=== PATIENT | male | born 1955 | race Caucasian/White ===

== ENCOUNTER 2018-07-11 01:59 | Outpatient (CLI) | payer MEDICARE, SELFPAY ==
[2018-07-11 11:25] LABS: Cholesterol 250 mg/dL (50-200); HDL Cholesterol 37 mg/dL (40-60); LDL CHOLESTEROL 120 mg/dL (<100); Triglyceride 387 mg/dL (30-150)
== END 2018-07-11 02:19 ==
PROVIDERS: PCP Emergency Medicine; Visit Provider Emergency Medicine
DX: E78.5 Hyperlipidemia, unspecified (principal)
CPT/HCPCS: 80061; 83721

== ENCOUNTER 2018-10-09 11:24 | Outpatient (CLI) | payer MEDICARE, SELFPAY ==
[2018-10-10 09:43] LABS: PSA, Screening 1.4 ng/ml (0-4.5)
== END 2018-10-09 11:44 ==
PROVIDERS: PCP Emergency Medicine; Visit Provider Emergency Medicine
DX: F41.9 Anxiety disorder, unspecified (principal); Z12.5 Encounter for screening for malignant neoplasm of prostate
CPT/HCPCS: 36415; 84153

== ENCOUNTER → 2018-12-24 10:42 | Outpatient (BNVA) | payer MEDICARE, SELFPAY | PROVIDERS: PCP Emergency Medicine; Referring Provider Emergency Medicine; Visit Provider Physical Therapy Assistant | DX: Z12.11 Encounter for screening for malignant neoplasm of colon (principal) ==

== ENCOUNTER 2019-01-01 09:47 | Day surgery (SDC) | payer MEDICARE, SELFPAY ==
--- NOTE | 2019-01-01 06:55 | COLE_ITS ---
Date of service: 01/01/19 Time of Service: 12:11 Colonoscopy Report Date of procedure: 01/01/19 Pre-op diagnosis general: Colon Cancer Screening Post-op diagnosis procedure note: other (Diverticulosis and colorectal polyps) Procedure: Colonoscopy with polypectomy by forceps Surgeon: Katie Villeda Anesthesia proc note operative: other (General/ ASA2 /Adriel Stewart, QUARTER BACKER) Estimated blood loss (mL): 5 Pathology: other (Ascending polyp x3, Descending polyp x2) Complications: None Disposition: same day Indications: Mr. Horvath is a pleasant 63 year old male seen in the office for a screening colonoscopy. His last Colonoscopy was in 2007 and was normal. Risks, benefits and complications have been reviewed. Complications include but are not limited to bleeding, pain, perforation, missed small lesion/polyp, sore throat, aspiration and adverse reaction to the medications. Questions were entertained and answered to their satisfaction and they wished to proceed. No guarantees were given or implied. Prep: Miralax/Dulcolax Procedure Start Time: 12:11 Procedure End Time: 12:46 Retraction Time: 25 minutes Findings: 3 sessile polyps in the ascending colon and 2 in the descending Diverticulosis Procedure Description: After informed consent was obtained the patient was taken to the procedure room and placed in a left decubitous position. Monitors were applied and a time out was done. The patients name, date of , procedure, allergies to medications and metal in their body was reviewed. The patient was then sedated. Once sedated and comfortable a rectal exam was done. External exam was normal. Internal exam revealed a normal sphincter tone and no palpable masses. The prostate smooth. The scope was then introduced and retro-flexed. No internal hemorrhoids were identified, no polyps or masses. The scope was then advanced to the cecum without difficulty. The TI and appendiceal orifice were identified. The prep was adequate. The scope was then slowly retracted over 25 minutes back into the rectum. Polyps were removed with cold forceps in the ascending colon x3 and the descending colon x2. The scope was removed and the patient was woken up and taken back to Same day surgery in stable condition. The patient tolerated the procedure well and there were no immediate complications. Follow up: The patient should follow up in 3-5 years unless they develop changes in bowel habits or other new gastrointestinal complaints.
--- NOTE | 2019-01-01 06:55 | W.PM.DSUDISC ---
Discharge Plan Disposition Patient Disposition: HOME Condition: Good Discharge Details Reason For Visit: Colon Cancer Screening Attending Provider: Katie Villeda Primary Care Provider: Laz Wahl Home Meds and New Rx's Prescriptions: Continued desonide [DesOwen] 0.05 % cream 1 applic TP BID PRN (Reason: rash) Qty: 30 RF: 1 ibuprofen [Advil] 200 MG tablet 2 tab PO daily prn PRNRF: 0 clonazepam 0.5 mg tablet 0.5 mg PO BID Qty: 90 RF: 0 esomeprazole magnesium 20 mg capsule,delayed release(DR/EC) 20 mg PO BID Qty: 90 RF: 3 Discontinued polyethylene glycol 3350 17 gram/dose powder 238 g PO ONCE Qty: 238 RF: 0 bisacodyl [Dulcolax (bisacodyl)] 5 mg tablet,delayed release (DR/EC) 5 mg PO ONCE Qty: 4 RF: 0 Discharge Instructions Instructions: Colonoscopy (DC), Colorectal Polyps (DC), Diverticulosis (DC) Additional Instructions: Findings: Mild Diverticulosis Multiple polyps Follow up: 3-5 years Please call if you develop: fevers >101.5 Nausea or Vomiting Abdominal pain that is not transient DAY SURGERY UNIT POST COLONOSCOPY INSTRUCTIONS 1. Because there will be medication in your system for the next 24 hours, you may feel a little sleepy. Your coordination will be affected. Therefore: a. Do not drive or operate dangerous equipment for 24 hours. b. Do not drink alcohol beverages for 24 hours (not even beer). c. Plan to go home and rest for the day. 2. Generally there are no restrictions on your activity after a day or so has gone by, but you may feel a bit fatigued for a few days. 3 After you arrive home you may have a light meal and return to a normal diet as you can tolerate it without feeling sick to your stomach. 4. After surgery, you may feel pain or discomfort. This should be only transient, but if it persists please contact your doctor. 5. If there are any questions regarding the findings of your procedure, please feel free to contact your doctor. 6. If you are unable to contact your doctor with a problem, contact the hospital at [phone]. 7. Continue all your regular medications unless directed otherwise. I understand the above instructions and have no questions. Signature of Patient or Responsible Adult Escort Date/Time Name of Responsible Adult Escort Signature of Nurse Date/Time Activity:: Activity as Tolerated Diet:: High Fiber Diet Discharge Orders Discharge Orders: Discharge Order (Routine); Ordered 01/01/19 Ordered By: Katie Villeda DS: Diagnosis Discharge Diagnosis (1) S/P colonoscopy: Status: Acute (2) Colorectal polyps: Status: Acute
[2019-01-01 11:01] VITALS: BP 131/89; PULSE 80; RESP 16; TEMP 36.6; O2SAT 97
[2019-01-01] MEDS: Lactated Ringers 1,000 ML 80 ML IV (11:22)
--- NOTE | 2019-01-01 12:15 | BOWEL_PTH ---
PATIENT: Wilmer Horvath JR LOC: [facility] U#:[id number] AGE/SX: 63/M ROOM: RE01/01/[address]: Katie Villeda MD : 1955 BED: DIS: 01/01/2019 SPEC #: [id number] RECD: 01/01/19 17:18 STATUS: COURT REQ #: [id number] ALLYSON: 01/01/19 12:[address]: Katie Villeda DEPT: Surgical Specimen RECD BY: Tamika Goldstein ENTERED: 01/01/19 17:20 SP TYPE: Bowel OTHR DR: Laz Wahl DO Tissues: 1 - BIOPSY BOWEL 2 - BIOPSY BOWEL Procedures: GROSS AND MICRO LEVEL 4 Comments: [id number]
[2019-01-01 13:18] VITALS: BP 132/75; PULSE 67; RESP 16; TEMP 36.7; O2SAT 97
== END 2019-01-01 13:50 | disposition home or self-care (01) ==
LOC: SUR 09:47
PROVIDERS: PCP Emergency Medicine; Visit Provider Surgery
PROC: 0DJD8ZZ Inspection of Lower Intestinal Tract, Via Natural or Artificial Opening Endoscopic (ICD-10-PCS; CPT 45378; principal; 2019-01-01 11:45)
DX: Z12.11 Encounter for screening for malignant neoplasm of colon (principal); D12.4 Benign neoplasm of descending colon; D12.2 Benign neoplasm of ascending colon; K57.30 Diverticulosis of large intestine without perforation or abscess without bleeding
CPT/HCPCS: 45380; 88305

== ENCOUNTER → 2020-04-09 10:27 | Outpatient (BNVA) | payer MEDICARE, SELFPAY | PROVIDERS: PCP Emergency Medicine; Referring Provider Emergency Medicine; Visit Provider Nurse Practitioner Gerontology | DX: N48.89 Other specified disorders of penis (principal) | CPT/HCPCS: 99204; 99215 ==

== ENCOUNTER 2021-01-27 20:01 | Emergency (ER) | payer MEDICARE, SELFPAY ==
[2021-01-27] VITALS (15 sets, daily range): BP systolic 127–165; BP diastolic 82–92; PULSE 68–83; RESP 12–20; TEMP 36.6; O2SAT 96–99
--- NOTE | 2021-01-27 20:07 | W.ED.GENAD ---
Discharge Plan Disposition Patient Disposition: HOME Condition: Improving Discharge Details Clinical Impression: Allergic reaction Primary Care Provider: Laz Wahl ED Provider: Daphney Bailon Home Meds and New Rx's Prescriptions: New prednisone 20 mg tablet 40 mg PO DAILY 3 Days Qty: 6 RF: 0 epinephrine 0.3 mg/0.3 mL auto-injector 0.3 mg IM ONCE PRN (Reason: anaphylaxis) Qty: 1 RF: 0 Continued desonide [DesOwen] 0.05 % cream 1 applic TP BID PRN (Reason: rash) Qty: 30 RF: 1 ibuprofen [Advil] 200 MG tablet 2 tab PO daily prn PRNRF: 0 esomeprazole magnesium 20 mg capsule,delayed release(DR/EC) 20 mg PO BID Qty: 180 RF: 3 clonazepam 0.5 mg tablet 0.5 mg PO BID Qty: 90 RF: 1 Discharge Instructions Instructions: Epinephrine (By injection), General Allergic Reaction (ED) Additional Instructions: At this time, your symptoms have resolved from your allergic reaction to almonds. Please avoid almonds in the future. As her symptoms have progressively worsened with exposure, I do feel that you having an EpiPen available appropriate in the event you have an anaphylactic reaction. This would include difficulty breathing, vomiting, shortness of breath, swelling of your tongue or throat. If you develop these symptoms please administer the EpiPen into your lateral thigh. If you need to use this, please seek care emergently afterwards. To prevent recurrence of symptoms from this reaction, please take the steroids as prescribed. Prescription has been sent to your pharmacy. You may use Benadryl as needed to help with symptomatic management. If you develop difficulty breathing, shortness of breath, difficulty swallowing or other new/worsening symptom please seek care urgently once again. Otherwise, please follow-up with your primary care next week for reevaluation Referrals: Laz Wahl, [Primary Care Provider] - Discharge Data Discharge Date/Time-TO BE ENTERED AT DEPARTURE: 01/27/21 21:33 Medical Decision Making Patient is a pleasant 65-year-old male presenting today with chief complaint of allergic reaction after eating almonds. Reports that he began having symptoms while eating almonds. Patient had similar symptoms to a lesser degree historically. States that while eating the almonds he began having tingling in the upper half of his face. [place] like he had swelling in his eyes and difficulty breathing. Difficulty breathing has since subsided. He denies any rash or itching. No nausea, vomiting or diarrhea. Has not noted any swelling intraorally or difficulty swallowing. On exam, patient appears anxious. He is in no respiratory distress. No rashes appreciated. He is some swelling to the bilateral upper lid denies eyes are tearing. No intraoral abnormality. Lungs are clear in all wall with no wheezing noted. Patient is handling secretions well. Speaking in full sentences At this point, the patient does appear to be having a reaction to it does not appear to be anaphylactic. Will give diphenhydramine pills, famotidine and methylprednisolone and continue to monitor the patient. His vital signs are stable and he is not hypotensive. Patient reevaluated multiple times after above intervention. Continues to improve. Patient remains hemodynamically stable with no progression of symptoms. Patient reports symptoms have completely subsided. I am concerned with progression of symptoms if he was to be exposed to almonds once again in the future this could be much worse. He did have shortness of breath initially, will discharge home with an EpiPen as well as strict instructions on use. We will continue him for next 2 days on prednisone. Advise close follow-up with primary care. Strict return precautions were discussed. Advised that he abstain from all almonds and almond-containing product. All of his questions and concerns were addressed and he is in agreement with this plan. HPI General Mode of arrival: ambulatory. Date/Time Provider Initiated Documentation: 01/27/21 20:02. Limitations to Documentation: no limitations. Information obtained by: patient and RN notes reviewed. History of Present Illness 65 year old M presents to the emergency department with the chief complaint of allergic reaction, described as moderate, Quality is described as other (swelling of eye lids, nasal congestion), and is localized to the face. Patient reports no radiation. Patient started experiencing this minute(s) (20-30) and it has been constant (improving). No relieving factors improve symptom(s), Other factors that worsen symptoms (ate almonds) . Patient notes denies chest pain, cough, fever/chills, headaches, nausea/vomiting, rash, shortness of breath and syncope. Patient did receive the following treatments prior to arrival, none Related Data Home Medications Medication Instructions Recorded Confirmed ibuprofen [Advil] 2 tab PO daily prn PRN 11/13/15 01/27/21 desonide 0.05 % topical cream 1 applic TP BID PRN #30 gm 12/25/18 01/27/21 esomeprazole magnesium 20 mg 20 mg PO BID #180 cap 03/05/20 01/27/21 capsule,delayed release clonazepam 0.5 mg tablet 0.5 mg PO BID #90 tab 10/30/20 01/27/21 epinephrine 0.3 mg IM ONCE PRN #1 ea 01/27/21 prednisone 40 mg PO DAILY 3 Days #6 tab 01/27/21 Previous Rx's Medication Instructions Recorded desonide 0.05 % topical cream 1 applic TP BID PRN #30 gm 12/25/18 esomeprazole magnesium 20 mg 20 mg PO BID #180 cap 03/05/20 capsule,delayed release clonazepam 0.5 mg tablet 0.5 mg PO BID #90 tab 10/30/20 epinephrine 0.3 mg IM ONCE PRN #1 ea 01/27/21 prednisone 40 mg PO DAILY 3 Days #6 tab 01/27/21 Allergies Allergy/AdvReac Type Severity Reaction Status Date / Time citalopram AdvReac Severe AKATHISIA Verified 01/27/21 20:08 gabapentin AdvReac Severe INTENSE Verified 01/27/21 20:08 ANXIETY Review of Systems Constitutional Constitutional: Reports as per HPI, Denies chills, Denies fever(s) and Denies headache(s) Eyes Eyes: Reports as per HPI ENT Ears, Nose, Mouth, and Throat: Reports as per HPI and Denies headache(s) Cardiovascular Cardiovascular: Denies chest pain Respiratory Respiratory: Reports as per HPI Gastrointestinal Gastrointestinal: Reports as per HPI Integumentary/Breasts Skin/Breast: Reports as per HPI Neurologic Neurologic: Denies headache(s) [facility] Medical History (Updated 01/27/21 @ 21:28 by SHANE Patterson) Anxiety (11/14/17) Chronic pain Narcotic CONTRACT DATE 08/31/14 Patient stopped meds on 10.30.15 Gastroesophageal reflux disease Hiatal hernia Hyperlipidemia Low back pain SSI disability began 05/2013 Please avoid narcotics Plantar wart Restless legs Surgical History Arthroplasty of knee (~1991) per pt he has not had a toatl knee replacement broken hand (~1986) Colonoscopy - MAC (~2007) neg EGD - MAC (~2003) H/O arthroscopic knee surgery R knee Hx of tonsillectomy S/P colonoscopy (~01/01/19) Vasectomy Family History Mother Hypocholesterolemia Father No problems noted. Sister No problems noted. Sister No problems noted. Sister No problems noted. Grandfather No problems noted. Grandfather No problems noted. Grandmother No problems noted. Grandmother No problems noted. Daughter No problems noted. Other Heart disease Social History Smoking/Tobacco Use Status: Never Smoking risk assessment performed?: Yes Alcohol Intake: former Drug use: Daily Substance use type: marijuana Details: marijuana: t-1, 6 hits Do you feel safe at home: Yes Exam Const General: cooperative, healthy appearing, comfortable, no acute distress and well developed Nutritional Appearance: average body habitus and well nourished Orientation: alert, awake and oriented x3 HENMT Head: normal to inspection Ears: hearing grossly normal bilaterally General nose exam: external nose normal and nares normal Face and sinus: normal facial exam Mouth: oral mucosae normal, lip normal, tongue normal, oropharynx normal, moist mucous membranes, no drooling and no muffled voice Teeth and gingiva: dentition normal Throat: posterior oropharynx normal and tonsils normal Eyes Alignment and Position: alignment normal and position normal Eyelids: eyelid abnormality right upper eyelid swelling and left upper eyelid swelling Conjunctivae: conjunctival abnormality bilaterally conjunctival injection Pupils: PERRL EOM: EOM intact bilaterally Neck Neck: normal visual inspection, full ROM, no lymphadenopathy, no meningeal signs and trachea midline Resp Effort & Inspection: normal respiratory effort, able to speak in complete sentences, no respiratory distress and no use of accessory muscles Auscultation: clear to auscultation bilaterally Cardio Rate: regular rate Rhythm: regular rhythm Heart Sounds: S1 normal and S2 normal GI Palpation: soft, not rigid and nontender Percussion: normal to percussion Auscultation: normal bowel sounds Skin General skin exam: no rashes or lesions noted Neuro General: patient alert and patient awake Cognition: normal cognition Speech: speech normal Gait: normal gait Psych Appearance: grossly normal and well kempt Mental Status: mental status grossly normal Speech and Movement: speech and movement normal
[2021-01-27] MEDS: Normal Saline 1,000 ML 1000 ML IV (20:11)
[2021-01-27] MEDS: diphenhydrAMINE 50 MG/ML VIAL IVP (20:11)
[2021-01-27] MEDS: FAMOTIDINE 20 MG/50 ML BAG 200 MG IVPB (20:11)
[2021-01-27] MEDS: methylPREDNISolone SUCC 125 MG VIAL IVP (20:11)
[2021-01-27] MEDS: EPINEPHrine 0.3 MG KIT IM (21:43)
== END 2021-01-27 21:33 | disposition home or self-care (01) ==
LOC: ER 21:36
PROVIDERS: Emergency Provider Physician Assistant; PCP Emergency Medicine
DX: T78.1XXA Other adverse food reactions, not elsewhere classified, initial encounter (principal); R20.2 Paresthesia of skin; R06.00 Dyspnea, unspecified; R22.0 Localized swelling, mass and lump, head; Z91.018 Allergy to other foods
CPT/HCPCS: 96361; 96365; 96372; 96375; 99284; J0171; J1200; J2930

== ENCOUNTER 2022-02-28 12:58 | Outpatient (REF) | payer MEDICARE, SELFPAY | END 2022-02-28 12:59 | disposition home or self-care (01) | LOC: LBN 12:58 | DX: L98.8 Other specified disorders of the skin and subcutaneous tissue (principal); L02.222 Furuncle of back [any part, except buttock and flank] | CPT/HCPCS: 87070; 87205 ==

== ENCOUNTER 2022-04-18 03:47 | Outpatient (CLI) | payer MEDICARE, SELFPAY ==
[2022-04-18 12:42] LABS: ALT 53 U/L (16-63); AST 22 U/L (15-37); Alkaline Phosphatase 88 U/L (46-116); BUN 21 mg/dL (7-18); Bilirubin, Total 0.3 mg/dL (0.2-1.0); CREATININE 1.2 mg/dL (0.70-1.30); Calcium 8.8 mg/dL (8.5-10.1); Chloride 103 mmol/L (98-107); Cholesterol 291 mg/dL (<200); Glucose 117 mg/dL (74-106); HDL Cholesterol 37 mg/dL (40-60); Potassium 4.1 mmol/L (3.5-5.1); Sodium 139 mmol/L (136-145); Total Protein 7.1 g/dL (6.4-8.2); Triglyceride 472 mg/dL (<150)
[2022-04-18 13:00] LABS: LDL CHOLESTEROL 176 mg/dL (<100)
== END 2022-04-18 03:48 | disposition home or self-care (01) ==
LOC: LOS 03:47
DX: E78.5 Hyperlipidemia, unspecified (principal); F41.9 Anxiety disorder, unspecified; G25.81 Restless legs syndrome; G89.29 Other chronic pain
CPT/HCPCS: 36415; 80053; 80061; 83721

== ENCOUNTER 2024-02-08 05:02 | Outpatient (CLI) | payer OTHER, SELFPAY ==
[2024-02-08 12:32] LABS: HCT 47.5 % (40.0-50.0); HGB 15.8 g/dL (13.5-17.5); MCH 29.4 pg (27.0-33.0); MCHC 33.3 % (32.0-36.0); MCV 88 fL (80-95); MPV 11.7 fL (8.0-11.0); Platelet Count 258 10^3/uL (130-400); RBC 5.38 10^6/uL (4.36-5.78); RDW 12.2 % (11.8-14.1); RDW-SD 39.2 fL; WBC 8.21 10^3/uL (4.4-10.8)
[2024-02-08 12:43] LABS: Hemoglobin A1C 5.4 % (<5.7)
[2024-02-08 13:25] LABS: Calculated LDL 178 mg/dL (<100); Cholesterol 247 mg/dL (<200); HDL Cholesterol 56 mg/dL (40-60); Triglyceride 68 mg/dL (<150); Vitamin B12 403 pg/mL (193-986)
== END 2024-02-08 05:03 | disposition home or self-care (01) ==
LOC: LOS 05:02
PROVIDERS: PCP Nurse Practitioner Family; Visit Provider Nurse Practitioner Family
DX: E78.2 Mixed hyperlipidemia (principal); R53.83 Other fatigue; Z13.1 Encounter for screening for diabetes mellitus
CPT/HCPCS: 36415; 80061; 85027; 82607; 83036

== ENCOUNTER 2024-07-26 14:58 | Outpatient (REF) | payer OTHER, MEDICARE, SELFPAY ==
--- NOTE | 2024-07-26 14:00 | SKI_PTH ---
PATIENT: Wilmer Horvath JR LOC: [facility] U#:[id number] AGE/SX: 68/M ROOM: RE07/26/[address]: SHANE Arevalo : 1955 BED: DIS: 07/26/2024 SPEC #: [id number] RECD: 07/29/24 12:34 STATUS: COURT REQ #: [id number] ALLYSON: 07/26/24 14:[address]: Damion Reynaga DEPT: Surgical Specimen RECD BY: Tamika Goldstein ENTERED: 07/29/24 12:35 SP TYPE: FABIANA SALMERON DR: Dawson Lucero, STEEL POURER Tissues: 1 - SKIN BIOPSY(SHAVE/PUNCH) Procedures: SKIN LEVEL 4 Comments: [id number]
== END 2024-07-26 14:59 | disposition home or self-care (01) ==
LOC: LBN 14:58
PROVIDERS: PCP Nurse Practitioner Family; Visit Provider Physician Assistant
DX: D49.2 Neoplasm of unspecified behavior of bone, soft tissue, and skin (principal); L82.0 Inflamed seborrheic keratosis
CPT/HCPCS: 88305

== ENCOUNTER 2025-02-21 14:42 | Outpatient (REF) | payer MEDICARE, SELFPAY ==
[2025-02-22 10:29] LABS: Campylobacter PCR Negative (Negative); Salmonella PCR Negative (Negative); Shiga Toxin PCR Negative (Negative); Shigella/Enteroinvasive Ecoli Negative (Negative)
== END 2025-02-21 14:43 | disposition home or self-care (01) ==
LOC: LBN 14:42
PROVIDERS: PCP Nurse Practitioner Family; Visit Provider Nurse Practitioner Family
DX: R19.7 Diarrhea, unspecified (principal)
CPT/HCPCS: 87015; 87269; 87272; 87505

== ENCOUNTER 2025-02-21 15:39 | Outpatient (REF) | payer MEDICARE, SELFPAY ==
[2025-02-21 12:45] LABS: Abs Immature Grans 0.05 10^3/uL (0.0-0.06); Absolute Basophil Count 0.04 10^3/uL (0.0-0.2); Absolute Monocyte Count 0.58 10^3/uL (0.1-0.8); Absolute Neutrophil Count 12.12 10^3/uL (1.2-6.7); Basophils % 0.3 %; Eosinophils % 0.1 %; HCT 46.1 % (40.0-50.0); HGB 15.5 g/dL (13.5-17.5); Immature Grans % 0.4 %; Lymphocytes % 5.7 %; MCH 29.4 pg (27.0-33.0); MCHC 33.6 % (32.0-36.0); MCV 87 fL (80-95); MPV 11.1 fL (8.0-11.0); Monocytes % 4.3 %; Neutrophils % 89.2 %; Platelet Count 258 10^3/uL (130-400); RBC 5.28 10^6/uL (4.36-5.78); RDW-SD 38.4 fL; WBC 13.59 10^3/uL (4.4-10.8)
[2025-02-21 12:46] LABS: Absolute Eosinophil Count 0.01 10^3/uL (0.0-0.7); Absolute Lymphocyte Count 0.77 10^3/uL (1.2-3.4)
[2025-02-21 13:06] LABS: ALT 22 U/L (16-63); AST 19 U/L (15-37); Albumin 4.1 g/dL (3.4-5.0); Alkaline Phosphatase 85 U/L (46-116); Anion Gap 10.1 mmol/L (3-11); BUN 21 mg/dL (7-18); Bilirubin, Total 0.4 mg/dL (0.2-1.0); CO2 27.9 mmol/L (21.0-32.0); CREATININE 1.2 mg/dL (0.70-1.30); Calcium 9.4 mg/dL (8.5-10.1); Chloride 104 mmol/L (98-107); Estimated GFR 66.28 (mL/min/1.73m2); Glucose 132 mg/dL (74-106); Magnesium 1.8 mg/dL (1.8-2.4); Potassium 4.1 mmol/L (3.5-5.1); Sodium 142 mmol/L (136-145); Total Protein 7.4 g/dL (6.4-8.2)
== END 2025-02-21 15:40 | disposition home or self-care (01) ==
LOC: LBN 15:39
PROVIDERS: PCP Nurse Practitioner Family; Visit Provider Nurse Practitioner Family
DX: R19.7 Diarrhea, unspecified (principal)
CPT/HCPCS: 80053; 83735; 85025

== ENCOUNTER 2025-02-22 09:23 | Emergency (ER) | payer MEDICARE, SELFPAY ==
[2025-02-22 09:26] VITALS: BP 155/99; PULSE 102; RESP 18; TEMP 36.9; O2SAT 97
--- NOTE | 2025-02-22 09:30 | DI.CT_ITS ---
Exam(s) CT ABDOMEN PELVIS CTA EXAM: CT ABDOMEN PELVIS CTA CLINICAL HISTORY: lower gi bleed. TECHNIQUE: Imaging Protocol: Axial CT angiography was performed with multi-slice acquisition and m ulti-planar and/or 3D reconstructions. CONTRAST MATERIAL: Intravenous: Omnipaque 350 Contrast volume:75mL Oral: No COMPARISON: No exams were available for comparison FINDINGS: ABDOMEN AND PELVIS: Abdomen: Celiac axis/mesenteric arteries: No evidence of occlusion or significant stenosis. Renal Arteries: No evidence of occlusion or significant stenosis. Mild atherosclerotic calcification is seen at the origins of the renal arteries. Aorta: No evidence of occlusion or significant stenosis. No aneurysm or dissection. Atherosclerotic calcification is present. Pelvis: Iliac Arteries: No evidence of occlusion or significant stenosis. Atherosclerotic calcification is p resent. Common Femoral Arteries: No evidence of occlusion or significant stenosis. Atherosclerotic calcifica tion is present. ABDOMEN: Lung bases: Unremarkable. Liver: Normal density. No measurable mass. Portal, Superior Mesenteric, and Splenic Veins: Unremarkable. Gallbladder and Biliary Tract: No radiodense calculus or dilation. Pancreas: Normal density, no abnormal calcifications or inflammatory process. Spleen: Normal. Adrenals: No masses seen. Kidneys: Normal size, contour and axis. No radiodense stones or obstructive uropathy. No masses seen. Bowel: There is diverticulosis of the colon. There is bowel wall thickening seen in the sigmoid colo n with pericolonic inflammatory changes suspicious for acute diverticulitis. There is no evidence of bowel obstruction. Appendix is unremarkable. Peritoneal Cavity: No ascites, collection or mesenteric inflammatory response. No free air. Lymph Nodes: Within normal limits. Bones: Within normal limits for the patient's age. There is a well-circumscribed lucency seen in the right iliac crest. No cortical destruction or periosteal reaction is seen. This may represent a be nign lesion. No other lytic lesions are seen in the bones. Please correlate with the patient's clin ical history. Soft Tissues: There are small fat containing inguinal hernias. PELVIS: Bladder: There is mild diffuse thickening of the wall of the urinary bladder. The urinary bladder is incompletely distended, but cystitis cannot be excluded. Reproductive Organs: There is mild impingement of the prostate gland on the base of the urinary bladd er. Lymph Nodes: Within normal limits. Bones: Within normal limits. IMPRESSION: 1. No evidence of abdominal aortic aneurysm or dissection. 2. Findings of acute diverticulitis of the sigmoid colon without evidence of abscess or free air. 3. No evidence of active gastrointestinal bleeding. 4. Thickening of the wall of the urinary bladder. This may be due to underdistention, but cystitis c annot be excluded. Please correlate clinically. RADIATION DOSE DELIVERED: 1,212.31mGy.cm Total DLP DATA REPOSITORY: All CT scans at this facility are submitted to the National Radiology Data Registry (NRDR) Dose Index Registry (DIR) with the [employer] (A[employer]). RADIATION OPTIMIZATION: All CT scans at this facility use at least one of these dose optimization te chniques: automated exposure control; mA and/or kV adjustment per patient size (includes targeted exa ms where dose is matched to clinical indication); or iterative reconstruction.
[2025-02-22 09:34] VITALS: BP 155/99; PULSE 102; RESP 18; TEMP 36.9; O2SAT 97
--- NOTE | 2025-02-22 09:41 | W.ED.GENAD ---
Discharge Plan Disposition Patient Disposition: Home Condition: Stable Discharge Details Clinical Impression: Diverticulitis Primary Care Provider: Dawson Lucero ED Provider: Jesus Benz [place] Meds and New Rx's Prescriptions: New metronidazole 500 mg tablet 500 mg PO Q8H Qty: 21 0RF ciprofloxacin HCl 500 mg tablet 500 mg PO BID Qty: 14 0RF Continued pantoprazole 40 mg tablet,delayed release (DR/EC) 40 mg PO DAILY Qty: 90 3RF epinephrine 0.3 mg/0.3 mL auto-injector 0.3 mg IM ONCE PRN (Reason: anaphylaxis) Qty: 1 0RF Rx Instructions: as a single dose clonazepam 0.5 mg tablet 0.5 mg PO QHS Qty: 30 2RF Discharge Instructions Additional Instructions: Your blood counts actually improved from yesterday. There is no signs of significant life-threatening bleeding. You have diverticulitis on your CAT scan. Take the antibiotics as prescribed. If you are not improving this week follow-up with your primary care provider. If you feel significantly more ill or have severe worsening pain return to emergency department for reevaluation HPI General Mode of arrival: ambulatory. Date/Time Provider Initiated Documentation: 02/22/25 09:24. Limitations to Documentation: no limitations. Information obtained by: patient. History of Present Illness 69 year old M presents to the emergency department with the chief complaint of bloody stools, described as moderate, Patient started experiencing this day(s) (2) and it has been intermittent. No relieving factors improve symptom(s), No exacerbating factors reported . Patient notes denies fever/chills and nausea/vomiting. Patient did receive the following treatments prior to arrival, none Related Data Home Medications ?Medication ?Instructions ?Recorded ?Confirmed epinephrine 0.3 mg/0.3 mL 0.3 mg (0.3 mL) IM ONCE PRN 01/03/24 02/22/25 injection, auto-injector anaphylaxis #1 ea pantoprazole 40 mg tablet,delayed 40 mg PO DAILY #90 tabs 06/14/24 02/22/25 release clonazepam 0.5 mg tablet 0.5 mg PO QHS #30 tabs 01/13/25 02/22/25 ciprofloxacin HCl 500 mg tablet 500 mg PO BID #14 tabs 02/22/25 metronidazole 500 mg tablet 500 mg PO Q8H #21 tabs 02/22/25 Previous Rx's ?Medication ?Instructions ?Recorded epinephrine 0.3 mg/0.3 mL 0.3 mg (0.3 mL) IM ONCE PRN 01/03/24 injection, auto-injector anaphylaxis #1 ea pantoprazole 40 mg tablet,delayed 40 mg PO DAILY #90 tabs 06/14/24 release clonazepam 0.5 mg tablet 0.5 mg PO QHS #30 tabs 01/13/25 ciprofloxacin HCl 500 mg tablet 500 mg PO BID #14 tabs 02/22/25 metronidazole 500 mg tablet 500 mg PO Q8H #21 tabs 02/22/25 Allergies Allergy/AdvReac Type Severity Reaction Status Date / Time citalopram AdvReac Severe AKATHISIA Verified 02/22/25 09:33 gabapentin AdvReac Severe INTENSE Verified 02/22/25 09:33 ANXIETY tree nuts AdvReac Severe Throat Uncoded 02/22/25 09:33 swelling, Can't breath General Stated Complaint: Nausea/Vomit/Diar LEAH: 3 Review of Systems All systems reviewed & are unremarkable except as noted in HPI and below Constitutional Constitutional: Denies chills, Denies fever(s) and Denies weakness Cardiovascular Cardiovascular: Denies chest pain and Denies dyspnea Respiratory Respiratory: Denies cough and Denies dyspnea Gastrointestinal Gastrointestinal: Reports abdominal pain, Reports hematochezia, Reports nausea and Denies vomiting Neurologic Neurologic: Denies weakness Exam Const General: no acute distress Orientation: alert [facility] Head: normal to inspection Ears: external ears normal General nose exam: external nose normal Mouth: moist mucous membranes Eyes General: appearance normal, both eyes and all related structures Neck Neck: normal visual inspection Resp Effort & Inspection: normal respiratory effort and able to speak in complete sentences Cardio Rate: regular rate GI Palpation: soft and nontender Skin General skin exam: no rashes or lesions noted Neuro General: patient alert and patient oriented x3 Extrem General: normal to inspection Psych Mental Status: mental status grossly normal Course Vital Signs Vital signs: Vital Signs Temperature 36.9 C 02/22/25 09:26 Pulse 102 H 02/22/25 09:26 Respiratory Rate 18 02/22/25 09:26 Blood Pressure 155/99 H 02/22/25 09:26 Pulse Oximetry 97 02/22/25 09:26 Temperature 36.9 C 02/22/25 09:34 Temperature Source Temporal Artery Scan 02/22/25 09:34 Pulse 102 H 02/22/25 09:34 Respiratory Rate 18 02/22/25 09:34 Blood Pressure 155/99 H 02/22/25 09:34 Blood Pressure Position Sitting 02/22/25 09:34 Pulse Oximetry 97 02/22/25 09:34 Oxygen Delivery Method Room Air 02/22/25 09:34 Oxygen Flow Rate 0 02/22/25 09:34 Pain Level 0 02/22/25 09:34 Comment abdomen starts cramping when he needs to move bowels 02/22/25 09:34 Medical Decision Making 69-year-old male comes in with 2 days of bloody bowel movements. He states that he ate food he thought was off and then a few hours later started having the bloody bowel movements. He denies any high fevers, recent travel, vomiting. He says that when he has bowel movements he has some abdominal discomfort but does not currently have any abdominal pain. His abdomen is soft and nontender. On rectal exam he has no evidence of hemorrhoids currently, he does have a small 2 mm nonthrombosed hemorrhoid at the 7 o'clock position that is not tender and does not appear to be the cause of his bleeding. I suspect this could be infectious colitis but will check CBC, CMP and CT to evaluate for an obvious source for the bleeding. Patient had stool studies collected yesterday in urgent care which are still pending. Hemoglobin actually improved from yesterday. Creatinine 1.5, yesterday was 1.2. CT shows evidence of diverticulitis. Patient is hemodynamically stable and has no severe abdominal pain. Given reassuring workup I feel he can be treated with oral antibiotics as an outpatient. He will follow-up with his PCP if not improving and return precautions given Differential Diagnosis Differential Diagnosis: Internal hemorrhoids, AVM, infectious colitis Lab Data Lab results reviewed: Yes I reviewed the patient's lab results. Quality:SDOH Health Related Social Needs: No Data to Display PFSH All Active Problems (Updated 02/22/25 @ 11:55 by Jesus Benz MD) Diverticulitis (Chronic) Solar lentigo (Acute) Abnormal skin growth (Acute) Skin lesion (Acute) Dandruff (Acute) Penile lesion (Acute) Tubular adenoma of colon (Acute ~12/2018) Anxiety (Acute 11/14/17) Gastroesophageal reflux disease (Acute) Hiatal hernia (Acute) Hyperlipidemia (Acute) Low back pain (Acute) SSI disability began 05/2013 Please avoid narcotics Restless legs (Acute) Surgical History History of arthroscopy of knee History of esophagogastroduodenoscopy Status post vasectomy H/O arthroscopic knee surgery R knee Hx of tonsillectomy broken hand (~1986) Vasectomy EGD - MAC (~2003) Colonoscopy - MAC (~2007) neg Arthroplasty of knee (~1991) per pt he has not had a toatl knee replacement Family History Mother Hypocholesterolemia Father No problems noted. Sister No problems noted. Sister No problems noted. Sister No problems noted. Grandfather No problems noted. Grandfather No problems noted. Grandmother No problems noted. Grandmother No problems noted. Daughter No problems noted. Other Heart disease Social History (Updated 07/16/24 @ 12:52 by Monica Lafleur) Smoking/Tobacco Use Status: Never Second Hand Exposure: Yes Smoking risk assessment performed?: Yes Alcohol Intake: former Year quit: 2016 Previous attempts at quittin Drug use: Daily Substance use type: marijuana Counseling given: No Counseling provided: none Details: marijuana: t-1, 6 hits Adopted: No Caregiver/Support person: No Foster care: No Household members: none Housing: house Number of Children: 2 number of grandchildren: 1 Communication Needs: None and Hard of Hearing Education Level: high school Do you need help understanding health information?: Rarely current occupation: Retired Pets and animals: No Do you think of yourself as: straight/heterosexual Current gender identity: male What is your relationship status?: How often do you talk on the phone with friends or family?: three or more times per week How often do you get together with friends or relatives?: twice per week Do you belong to any clubs or organized social groups?: no Panel score (0-1 are the most socially isolated patients): 1 Agree to transfusion: Yes Seatbelt use: always Helmet use: Yes Working smoke detector in home: Yes Carbon monox detector in home: Yes Do you feel safe at home: Yes
[2025-02-22 09:56] LABS: Abs Immature Grans 0.05 10^3/uL (0.0-0.06); Absolute Basophil Count 0.04 10^3/uL (0.0-0.2); Absolute Eosinophil Count 0.16 10^3/uL (0.0-0.7); Basophils % 0.3 %; Eosinophils % 1.1 %; HCT 49.1 % (40.0-50.0); HGB 16.2 g/dL (13.5-17.5); Immature Grans % 0.3 %; Lymphocytes % 13.1 %; MCH 28.9 pg (27.0-33.0); MCV 88 fL (80-95); MPV 10.5 fL (8.0-11.0); Monocytes % 6.4 %; Neutrophils % 78.8 %; Platelet Count 281 10^3/uL (130-400); RDW-SD 38.5 fL; WBC 14.31 10^3/uL (4.4-10.8)
[2025-02-22 09:58] LABS: Absolute Lymphocyte Count 1.87 10^3/uL (1.2-3.4); Absolute Monocyte Count 0.92 10^3/uL (0.1-0.8); Absolute Neutrophil Count 11.28 10^3/uL (1.2-6.7)
[2025-02-22] MEDS: Normal Saline - Diluent 50 ML VIAL IJ (10:10)
[2025-02-22 10:12] LABS: INR 1.1 (0.9-1.1); PTT Activated 26.7 sec (20.6-30.2)
[2025-02-22] MEDS: Omnipaque 350 MG/ML 100 ML BTL 75 ML IJ (10:13)
[2025-02-22 10:14] LABS: ALT 20 U/L (16-63); AST 17 U/L (15-37); Albumin 4.1 g/dL (3.4-5.0); Alkaline Phosphatase 92 U/L (46-116); Anion Gap 10.3 mmol/L (3-11); BUN 17 mg/dL (7-18); CO2 27.7 mmol/L (21.0-32.0); CREATININE 1.5 mg/dL (0.70-1.30); Calcium 9.5 mg/dL (8.5-10.1); Chloride 103 mmol/L (98-107); Estimated GFR 50.71 (mL/min/1.73m2); Glucose 124 mg/dL (74-106); Magnesium 1.8 mg/dL (1.8-2.4); Potassium 3.6 mmol/L (3.5-5.1); Sodium 141 mmol/L (136-145); Total Protein 8.2 g/dL (6.4-8.2)
[2025-02-22 11:56] VITALS: BP 158/103; PULSE 77; RESP 17; TEMP 36.7; O2SAT 98
== END 2025-02-22 12:03 | disposition home or self-care (01) ==
PROVIDERS: Emergency Provider Emergency Medicine; PCP Nurse Practitioner Family
DX: K57.32 Diverticulitis of large intestine without perforation or abscess without bleeding (principal)
CPT/HCPCS: 36415; 80053; 86850; 86900; 86901; 99285; 74174; 83735; 85025; 85610; 85730; 99284; J3490

== ENCOUNTER 2025-06-04 20:57 | Outpatient (REF) | payer MEDICARE, SELFPAY ==
[2025-06-04 21:51] LABS: Glucose Negative (Negative)
== END 2025-06-04 20:58 | disposition home or self-care (01) ==
LOC: LBN 20:57
PROVIDERS: PCP Nurse Practitioner Family; Visit Provider Nurse Practitioner Family
DX: R39.9 Unspecified symptoms and signs involving the genitourinary system (principal)
CPT/HCPCS: 81003

== ENCOUNTER 2025-06-16 13:44 | Emergency (ER) | payer MEDICARE, SELFPAY ==
[2025-06-16 13:46] VITALS: BP 122/75; PULSE 83; RESP 18; TEMP 36.3; O2SAT 10
--- NOTE | 2025-06-16 14:09 | ED.GENADUL_ITS ---
Discharge Plan Disposition Patient Disposition: Home Condition: Stable Discharge Details Clinical Impression: Hernia, inguinal, right Primary Care Provider: Dawson Lucero ED Provider: Jesus Benz Home Meds and New Rx's Prescriptions: Continued epinephrine 0.3 mg/0.3 mL auto-injector 0.3 mg IM ONCE PRN (Reason: anaphylaxis) Qty: 1 0RF Rx Instructions: as a single dose clonazepam 0.5 mg tablet 0.5 mg PO QHS Qty: 30 2RF No Action pantoprazole 40 mg tablet,delayed release (DR/EC) 40 mg PO DAILY Qty: 90 3RF metronidazole 500 mg tablet 500 mg PO Q8H Qty: 21 0RF ciprofloxacin HCl 500 mg tablet 500 mg PO BID Qty: 14 0RF Discharge Instructions Additional Instructions: The your CAT scan did not show any emergent findings. Based on your history and exam you have a right inguinal hernia. I placed you on our follow-up list to see general surgery and you should receive a phone call with a follow-up appointment. You can take 1000 mg of acetaminophen and 600 mg of ibuprofen every 6 hours as needed. Do not exceed 3000 mg in a 24-hour period of the acetaminophen. If you feel more ill or have new symptoms such as persistent vomiting or severe worsening pain return to the emergency department for reevaluation. Try to avoid heavy lifting which can exacerbate the pain. HPI General Mode of arrival: ambulatory . Date/Time Provider Initiated Documentation: 06/16/25 13:47 . Limitations to Documentation: no limitations . Information obtained by: patient . History of Present Illness 69 year old M presents to the emergency department with the chief complaint of right inguinal/abdominal pain, described as moderate, Patient started experiencing this day(s) (2) and it has been constant. No relieving factors improve symptom(s), No exacerbating factors reported . Patient notes no other symptoms.. Patient did receive the following treatments prior to arrival, none Related Data Home Medications ?Medication ?Instructions ?Recorded ?Confirmed epinephrine 0.3 mg/0.3 mL 0.3 mg (0.3 mL) IM ONCE PRN 01/03/24 06/16/25 injection, auto-injector anaphylaxis #1 ea pantoprazole 40 mg tablet,delayed 40 mg PO DAILY #90 t abs 06/14/24 06/16/25 release ciprofloxacin HCl 500 mg tablet 500 mg PO BID #14 tabs 02/22/25 06/16/25 metronidazole 500 mg tablet 500 mg PO Q8H #21 tabs 04/1106/16/25 clonazepam 0.5 mg tablet 0.5 mg PO QHS #30 tabs 04/1406/16/25 Previous Rx's ?Medication ?Instructions ?Recorded epinephrine 0.3 mg/0.3 mL 0.3 mg (0.3 mL) IM ONCE PRN 01/03/24 injection, auto-injector anaphylaxis #1 ea pantoprazole 40 mg tablet,delayed 40 mg PO DAILY #90 t abs 06/14/24 release ciprofloxacin HCl 500 mg tablet 500 mg PO BID #14 tabs 02/22/25 metronidazole 500 mg tablet 500 mg PO Q8H #21 tabs 04/11 clonazepam 0.5 mg tablet 0.5 mg PO QHS #30 tabs 04/14 Allergies Allergy/AdvReac Type Severity Reaction Status Date / Time citalopram AdvReac Severe AKATHISIA Verified 06/16/25 13:55 gabapentin AdvReac Severe INTENSE Verified 06/16/25 13:55 ANXIETY tree nuts AdvReac Severe Throat Uncoded 06/16/25 13:55 swelling, Can't breath General Stated Complaint: Abd Prob LEAH: 3 Review of Systems All systems reviewed & are unremarkable except as noted in HPI and below Constitutional Constitutional: Denies chills, Denies fever(s) and Denies weakness Cardiovascular Cardiovascular: Denies chest pain and Denies dyspnea Respiratory Respiratory: Denies cough and Denies dyspnea Gastrointestinal Gastrointestinal: Reports abdominal pain Neurologic Neurologic: Denies weakness Exam Const General: no acute distress Orientation: alert [facility] Head: normal to inspection Ears: external ears normal General nose exam: external nose normal Mouth: moist mucous membranes Eyes General: appearance normal, both eyes and all related structures Neck Neck: normal visual inspection Resp Effort & Inspection: normal respiratory effort and able to speak in complete sentences Cardio Rate: regular rate GI Palpation: soft and tender Skin General skin exam: no rashes or lesions noted Neuro General: patient alert and patient oriented x3 Extrem General: normal to inspection Psych Mental Status: mental status grossly normal Course Vital Signs Vital signs: Vital Signs Temperature 36.3 C L 06/16/25 13:46 Pulse 83 06/16/25 13:46 Respiratory Rate 18 06/16/25 13:46 Blood Pressure 122/75 06/16/25 13:46 Pulse Oximetry 10 L 06/16/25 13:46 Temperature 36.3 C L 06/16/25 13:46 Temperature Source Oral 06/16/25 13:46 Pulse 83 06/16/25 13:46 Respiratory Rate 18 06/16/25 13:46 Blood Pressure 122/75 06/16/25 13:46 Pulse Oximetry 10 L 06/16/25 13:46 Pain Level 10 06/16/25 13:46 Medical Decision Making 69-year-old male with a history of hyperlipidemia, anxiety who had diverticulitis in February and finished antibiotics and states he was feeling well but then started having right lower abdominal pain and right inguinal area pain. Denies any fevers, chest pain, difficulty breathing, burning with urination. He has tenderness in the right lower quadrant and also the right inguinal area does appear to have a soft nonreproducible inguinal right hernia. Suspect incarcerated hernia, will check a CBC, CMP, lactate, lipase and a CT abdomen pelvis to further evaluate. Labs unremarkable and CT shows no emergent findings, does have bilateral fat- containing areas in the inguinal canal and I suspect he has an intermittent right inguinal hernia given the location of his pain and increasing pain with heavy lifting. I am going to give him referral to see general surgery for follow-up in 1-2 weeks. Return precautions given Differential Diagnosis Differential Diagnosis: inguinal hernia, appendicitis Medical Records Medical records reviewed: Yes I reviewed the patient's medical records. Lab Data Lab results reviewed: Yes I reviewed the patient's lab results. PFSH All Active Problems (Updated 06/16/25 @ 15:50 by Jesus Benz MD) Hernia, inguinal, right (Acute) Solar lentigo (Acute) Abnormal skin growth (Acute) Skin lesion (Acute) Dandruff (Acute) Penile lesion (Acute) Tubular adenoma of colon (Acute ~12/2018) Anxiety (Acute 11/14/17) Gastroesophageal reflux disease (Acute) Hiatal hernia (Acute) Hyperlipidemia (Acute) Low back pain (Acute) SSI disability began 05/2013 Please avoid narcotics Restless legs (Acute) Surgical History History of arthroscopy of knee History of esophagogastroduodenoscopy Status post vasectomy H/O arthroscopic knee surgery R knee Hx of tonsillectomy broken hand (~1986) Vasectomy EGD - MAC (~2003) Colonoscopy - MAC (~2007) neg Arthroplasty of knee (~1991) per pt he has not had a toatl knee replacement Family History Mother Hypocholesterolemia Father No problems noted. Sister No problems noted. Sister No problems noted. Sister No problems noted. Grandfather No problems noted. Grandfather No problems noted. Grandmother No problems noted. Grandmother No problems noted. Daughter No problems noted. Other Heart disease Social History Smoking/Tobacco Use Status: Never Second Hand Exposure: Yes Smoking risk assessment performed?: Yes Alcohol Intake: former Year quit: 2016 Previous attempts at quittin Drug use: Daily Substance use type: marijuana Counseling given: No Counseling provided: none Details: marijuana: t-1, 6 hits Adopted: No Caregiver/Support person: No Foster care: No Household members: none Housing: house Number of Children: 2 number of grandchildren: 1 Communication Needs: None and Hard of Hearing Education Level: high school Do you need help understanding health information?: Rarely current occupation: Retired Pets and animals: No Do you think of yourself as: straight/heterosexual Current gender identity: male What is your relationship status?: How often do you talk on the phone with friends or family?: three or more times per week How often do you get together with friends or relatives?: twice per week Do you belong to any clubs or organized social groups?: no Panel score (0-1 are the most socially isolated patients): 1 Agree to transfusion: Yes Seatbelt use: always Helmet use: Yes Working smoke detector in home: Yes Carbon monox detector in home: Yes Do you feel safe at home: Yes
[2025-06-16 14:13] VITALS: O2SAT 98
[2025-06-16] MEDS: Ketorolac 15 MG/ML VIAL IVP (14:21)
[2025-06-16] MEDS: Normal Saline 1,000 ML 1000 ML IV (14:22)
[2025-06-16 14:32] LABS: Abs Immature Grans 0.03 10^3/uL (0.0-0.06); HCT 45.2 % (40.0-50.0); HGB 14.7 g/dL (13.5-17.5); Immature Grans % 0.3 %; MCH 28.4 pg (27.0-33.0); MCHC 32.5 % (32.0-36.0); MCV 87 fL (80-95); MPV 10.6 fL (8.0-11.0); Platelet Count 241 10^3/uL (130-400); RBC 5.18 10^6/uL (4.36-5.78); RDW 12.0 % (11.8-14.1); RDW-SD 38.5 fL; WBC 9.15 10^3/uL (4.4-10.8)
[2025-06-16 14:49] LABS: ALT 32 U/L (16-63); AST 20 U/L (15-37); Albumin 4.1 g/dL (3.4-5.0); Alkaline Phosphatase 80 U/L (46-116); Anion Gap 9.5 mmol/L (3-11); BUN 22 mg/dL (7-18); Bilirubin, Total 0.5 mg/dL (0.2-1.0); CO2 26.5 mmol/L (21.0-32.0); Calcium 9.0 mg/dL (8.5-10.1); Chloride 103 mmol/L (98-107); Estimated GFR 60.21 (mL/min/1.73m2); Glucose 106 mg/dL (74-106); Lipase 24 U/L (<78); Magnesium 1.8 mg/dL (1.8-2.4); Potassium 3.7 mmol/L (3.5-5.1); Sodium 139 mmol/L (136-145); Total Protein 7.7 g/dL (6.4-8.2)
[2025-06-16] MEDS: Omnipaque 350 MG/ML 100 ML BTL IJ (14:58)
[2025-06-16] MEDS: Normal Saline - Diluent 50 ML VIAL IJ (14:59)
[2025-06-16] MEDS: Normal Saline Flush 10 ML SYR IVP (15:00)
--- NOTE | 2025-06-16 15:05 | DI.CT_ITS ---
Exam(s) CT ABDOMEN PELVIS W EXAM: CT ABDOMEN PELVIS W CLINICAL HISTORY: right lower abdominal/inguinal pain. TECHNIQUE: Imaging Protocol: Axial computed tomography images with coronal and sagittal reformatted images were created and reviewed CONTRAST MATERIAL: Intravenous: Omnipaque 350 Contrast volume:75 ml Oral: no COMPARISON: CT CT ABDOMEN PELVIS CTA from 02/22/2025 FINDINGS: ABDOMEN and PELVIS: Lung Bases: No acute findings. Liver: Normal density. No suspicious mass. Gallbladder and biliary tract: No radiodense calculus. No wall thickening or pericholecystic fluid. No biliary dilation. Pancreas: Normal density. No abnormal calcifications or inflammatory process. No evidence of mass. Spleen: Normal. Kidneys: Normal size, contour and axis. No radiodense stones. No obstructive uropathy. No suspicious masses seen. Adrenal glands: No masses seen. Vasculature: Abdominal aorta non-dilated. Mild atherosclerotic changes. Soft tissues: There is minimal fat extending into the inguinal canals. Bladder: No gross wall thickening. No calculi.No focal mass. Bowel: There is diverticulosis of the sigmoid colon. No evidence of diverticulitis. Normal quantity of stool. No obstruction. No bowel wall thickening. Appendix normal. Peritoneal cavity: No ascites. No focal collection. No mesenteric inflammatory response. No free air. Bones: Unremarkable for age. Reproductive organs: Mildly enlarged prostate, impressing on the base of the bladder. Lymph nodes: No pathologically enlarged lymph nodes. IMPRESSION:: Sigmoid diverticulosis. No evidence of diverticulitis or other acute abnormality in the abdomen or pelvis. RADIATION DOSE DELIVERED: Total DLP DATA REPOSITORY: All CT scans at this facility are submitted to the National Radiology Data Registry (NRDR) Dose Index Registry (DIR) with the [employer] (ACR). RADIATION OPTIMIZATION: All CT scans at this facility use at least one of these dose optimization techniques: automated exposure control; mA and/or kV adjustment per patient size (includes targeted exams where dose is matched to clinical indication); or iterative reconstruction.
[2025-06-16 15:40] LABS: Glucose Negative (Negative)
[2025-06-16 16:05] VITALS: BP 126/74; PULSE 74; RESP 18; O2SAT 98
== END 2025-06-16 16:06 | disposition home or self-care (01) ==
PROVIDERS: Emergency Provider Emergency Medicine; PCP Nurse Practitioner Family
DX: R10.31 Right lower quadrant pain (principal); K40.90 Unilateral inguinal hernia, without obstruction or gangrene, not specified as recurrent
CPT/HCPCS: 99284; 99285; 96374; 80053; 83690; 74177; 81003; 83605; 83735; 85025; J1885; J3490

== ENCOUNTER → 2025-06-24 10:41 | Outpatient (BNVA) | payer MEDICARE, MEDICAID, SELFPAY | PROVIDERS: PCP Nurse Practitioner Family; Referring Provider Nurse Practitioner Family; Visit Provider Student in an Organized Health Care Education/Training Program | DX: K40.90 Unilateral inguinal hernia, without obstruction or gangrene, not specified as recurrent (principal); R10.31 Right lower quadrant pain | CPT/HCPCS: 99213 ==

== ENCOUNTER 2025-07-04 09:38 | Day surgery (SDC) | payer MEDICARE, MEDICAID, SELFPAY ==
[2025-07-04] VITALS (22 sets, daily range): BP systolic 126–194; BP diastolic 78–97; PULSE 61–84; RESP 13–24; TEMP 36.3–36.7; O2SAT 94–98; BMI 24.7
[2025-07-04] MEDS: Lactated Ringers 1,000 ML 80 ML IV (11:08)
--- NOTE | 2025-07-04 11:30 | W.ANESPRE ---
General Info Date of Service Date Performed: 07/04/25 Height: 6 ft Weight: 82.9 kg Body Mass Index (BMI): 24.7 Surgical Procedure: Operation Date: 07/04/25 11:40 Proposed Procedure Side Surgeon p Herniorrhaphy Inguinal Right Aurora Abernathy MD Meds Allergies and Home Medications Allergies Allergy/AdvReac Type Severity Reaction Status Date / Time citalopram AdvReac Severe AKATHISIA Verified 07/04/25 10:53 gabapentin AdvReac Severe INTENSE Verified 07/04/25 10:53 ANXIETY tree nuts AdvReac Severe Throat Uncoded 07/04/25 10:53 swelling, Can't breath Home Medication ?Medication ?Instructions ?Recorded clonazepam 0.5 mg tablet 0.5 mg PO QHS #30 tabs 04/14/25 pantoprazole 40 mg tablet,delayed 40 mg PO DAILY #90 tabs 06/17/25 release epinephrine 0.3 mg/0.3 mL 0.3 mg (0.3 mL) IM ONCE PRN 06/24/25 injection, auto-injector anaphylaxis #1 ea Current Visit Medications: Current Medications Generic Name Dose Route Start Last Admin Trade Name Freq PRN Reason Stop Dose Admin Ringer's Solution 1,000 mls @ 80 mls/hr 07/04/25 06:00 07/04/25 11:08 IV 07/04/25 23:59 80 mls/hr INFUSION DALIA Administration Cefazolin Sodium/Dextrose 2 gm in 50 mls @ 100 mls/hr 07/04/25 06:00 Ancef Duplex IVPB 07/04/25 23:59 PREOP DALIA IV Miscellaneous Supplies 1 each 07/04/25 06:00 Iv Access IV 07/04/25 23:59 DIRECTED DALIA Sodium Chloride 0 ml 07/04/25 06:00 Normal Saline Flush 10 Ml Syr IV 07/04/25 23:59 PRN PRN Sodium Chloride 0 ml 07/04/25 06:00 Normal Saline 10 Ml Vial IJ 07/04/25 23:59 DIRECTED PRN Sterile Water 0 ml 07/04/25 06:00 Water,Injection,Sterile 10 Ml Vial IJ 07/04/25 23:59 DIRECTED PRN PFSH Active Problems Active Problems: Problem Status Onset Code Tree nut allergy Acute Z91.018 Hernia, inguinal, right Acute K40.90 Solar lentigo Acute L81.4 Abnormal skin growth Acute D49.2 Skin lesion Acute L98.9 Dandruff Acute L21.0 Penile lesion Acute N48.9 Tubular adenoma of colon Acute ~12/2018 D12.6 Anxiety Acute 11/14/17 F41.9 Gastroesophageal reflux disease Acute K21.9 Hiatal hernia Acute K44.9 Hyperlipidemia Acute E78.5 Low back pain Acute M54.5 Restless legs Acute G25.81 Medical History Medical History Hx of opioid abuse Pt. states he does NOT want opioids for 07/04/25 surgery Surgical History Surgical History History of arthroscopy of knee History of esophagogastroduodenoscopy Status post vasectomy H/O arthroscopic knee surgery R knee Hx of tonsillectomy broken hand (~1986) Vasectomy EGD - MAC (~2003) Colonoscopy - MAC (~2007) neg Arthroplasty of knee (~1991) per pt he has not had a toatl knee replacement Tobacco Smoking/Tobacco Use Status: Never Passive smoking exposure: Yes Second hand exposure: Yes Alcohol Alcohol Intake: former Year quit: 2016 Substance Use Substance use: Daily Substance use type: marijuana Counseling provided: none Details: 07/04/25: marijuana: t-1, 6 hits Vital Signs and Lab Results Vital Signs Most Recent Vital Signs in EMR: Most Recent Vital Signs Temp Pulse Resp BP Pulse Ox 36.7 C 84 16 141/97 H 98 07/04/25 10:42 07/04/25 10:42 07/04/25 10:42 07/04/25 10:42 07/04/25 10:42 Lab Results Complete Blood Count: WBC, (4.4-10.8) 9.15 10^3/uL 06/16/25, 14:23 RBC, (4.36-5.78) 5.18 10^6/uL 06/16/25, 14:23 Hgb, (13.5-17.5) 14.7 g/dL 06/16/25, 14:23 Hct, (40.0-50.0) 45.2 % 06/16/25, 14:23 Plt Count, (130-400) 241 10^3/uL 06/16/25, 14:23 VBG Lactate, (<or=2.0) 1.8 mmol/L 06/16/25, 14:23 Complete Metabolic Panel: Sodium, (136-145) 139 mmol/L 06/16/25, 14:23 Potassium, (3.5-5.1) 3.7 mmol/L 06/16/25, 14:23 Chloride, (98-107) 103 mmol/L 06/16/25, 14:23 Carbon Dioxide, (21.0-32.0) 26.5 mmol/L 06/16/25, 14:23 BUN, (7-18) 22 mg/dL H 06/16/25, 14:23 Creatinine, (0.70-1.30) 1.3 mg/dL 06/16/25, 14:23 Est GFR (CKD-EPI 2020), (mL/min/1.73m2) 60.21 06/16/25, 14:23 Magnesium, (1.8-2.4) 1.8 mg/dL 06/16/25, 14:23 Calcium, (8.5-10.1) 9.0 mg/dL 06/16/25, 14:23 Albumin, (3.4-5.0) 4.1 g/dL 06/16/25, 14:23 Glucose, (74-106) 106 mg/dL 06/16/25, 14:23 Liver Function Panel: ALT, (16-63) 32 U/L 06/16/25, 14:23 AST, (15-37) 20 U/L 06/16/25, 14:23 Pancreas Panel: Lipase, (<78) 24 U/L 06/16/25, 14:23 Anesthesia Assessment and Plan Anesthesia History Personal History: No History of Anesthesia Complications Family History: No Family History of Anesthesia Complications Exercise Tolerance Exercise Tolerance: Metabolic Equivalents>4 Pertinent Negatives Pertinent Negatives: No Symptoms of GERD (RX. Hx of GERD) Cardiac & Pulmonary Exam Cardiac Exam: Normal S1/S2 Heart Sounds Pulmonary Exam: Clear Bilateral Breath Sounds Implantable Cardiac Device Does patient have a Pacemaker or an ICD?: No Airway Exam Known Difficult Airway: No Mallampati Class: 2 Mouth Opening: Normal (> 3cm) Thyromental Distance: Greater than 3 cm Neck Range of Motion: Full ROM Neck Circumference: Normal Teeth Condition: Normal Dentition ASA Classification ASA Score: ASA 2 Emergency Case?: No NPO Status NPO Status: NPO Clears >2 hours, Solids >8 hours Anesthesia Plan Resuscitation Status: Full Code Anesthesia Technique: General Anesthesia Airway Planned: Endotracheal Tube Monitors Used: Standard Monitors and SedLine Preoperative Comments:: Hx of opioid use disorder. Does not want narcotics post-op.
[2025-07-04] MEDS: ceFAZolin 2 GM/50 ML BAG IVPB (12:48)
[2025-07-04] MEDS: Bupivacaine 0.25% Pres-Free W/EPI 30 ML VIAL (13:05)
--- NOTE | 2025-07-04 13:06 | W.ANESNERVE ---
Nerve Block Single Injection Procedure Date and Time Date Performed: 07/04/25 Procedure Start: 12:38 Location Where Procedure Performed Procedure Location: Operating Room Procedure Stop: 12:48 Reason Performed: Postoperative Analgesia Requesting Provider: Aurora Abernathy Timeout Performed Timeout Performed: Yes Monitoring Used ECG, Blood Pressure, SpO2, ETCO2 and See EMR for corresponding vital signs Sterility Sterility: Hand Hygiene, Surgical Cap, Surgical Mask, Sterile Gloves, Eye Protection and Chlorhexidine Sedation Given During Procedure Sedation Given (Indicate Dose Given): No Sedation given Patient Mental Status Patient Mental Status: Performed under general anesthesia Nerve Block 1st Nerve Block: Laterality: Right Block Type: TAP Unilateral Ultrasound Image Saved?: Yes Needle / Catheter Used: 100mm SonoPlex II Local Anesthetic Bolus (Indicate Dose Given): Bupivacaine 0.25% Dose:: 10cc/0.25% (25mg) and Exparel Dose:: 10cc/1.33% (133mg) Additives (Indicate Dose Given): Epinephrine to make 1:200,000 (5mcg/ml) Dose:: 50mcg (added to 0.25% Bupivacaine) Ultrasound: Sterile probe cover and gel used Nerve Stimulator: Not Used Paresthesia: None Procedure Tolerated: No Complications and Patient tolerated well Procedure Outcome: Successful Performed By: Jesus Burger
--- NOTE | 2025-07-04 14:06 | W.PM.DSUDISC ---
Date of service: 07/04/25 Discharge Plan Disposition Patient Disposition: Home Condition: Good Discharge Details Reason For Visit: Right inguinal hernia Attending Provider: Aurora Abernathy Primary Care Provider: Dawson Lucero Home Meds and New Rx's Prescriptions: Continued clonazepam 0.5 mg tablet 0.5 mg PO QHS Qty: 30 2RF pantoprazole 40 mg tablet,delayed release (DR/EC) 40 mg PO DAILY Qty: 90 3RF epinephrine 0.3 mg/0.3 mL auto-injector 0.3 mg IM ONCE PRN (Reason: anaphylaxis) Qty: 1 0RF Rx Instructions: as a single dose Discharge Instructions Instructions: Groin Hernia Repair (DC) Additional Instructions: Your hernia repair went well today. As we discussed please refrain from lifting >15lbs for 4 weeks. Please alternate between tylenol and ibuprofen for pain control postoperatively. You may also apply ice to your incision. You have skin glue and steri-strips (small bandaid like strips) on your incision. Please leave these in place. They may fall off on their own in 10-14 days. You may shower in 48hrs. Allow warm, soapy water to run over your incision. Pat the incision dry. Do not rub the incision. If you have any questions or concerns please contact the general surgery office. Stand Alone Forms: Anesthesia Discharge Inst., Alessandro Martinez ([facility]) Referrals: Aurora Abernathy MD [ [facility] STAFF PHYSICIAN, Surgery] - 07/15/25 11:30 am Activity:: No heavy lifting >15lbs. Remove Dressings/Wound Care:: Do Not Remove Shower/Bathe:: 48 hours Diet:: As Tolerated Discharge Orders Discharge Orders: Discharge Order (Routine); Ordered 07/04/25 Ordered By: Aurora Abernathy
--- NOTE | 2025-07-04 14:56 | W.ANESPOSTOP ---
Postoperative Evaluation Date, Time and Location Date Performed: 07/04/25 Time Performed: 14:56 Patient Location: PACU Vital Signs Most Recent Imported Vital Signs: Most Recent Vital Signs Temp Pulse Resp BP Pulse Ox 36.5 C 64 16 154/88 H 95 07/04/25 14:47 07/04/25 14:45 07/04/25 14:45 07/04/25 14:41 07/04/25 14:45 Pain Score Most Recent Pain Score: Most Recent Pain Score Pain Level 7 07/04/25 14:47 Assessment Mental Status: Awake (Alert & Oriented to Patient Baseline) Airway and Respiratory Function: Patent airway with normal (patient baseline) respiratory exam Cardiovascular Function: Hemodynamically Stable Hydration Status: Adequately Hydrated Nausea & Vomiting: No Nausea or Vomiting Pain: Pain is tolerable per patient Peripheral Nerve Block: Regional nerve block not resolved at time of post operative discharge
--- NOTE | 2025-07-04 15:06 | ROE_ITS ---
Operative Note Operative Note PRE-OP DIAGNOSIS: Right inguinal hernia Right indirect inguinal hernia PROCEDURE: Open right inguinal hernia repair SURGEON: Aurora Abernathy MANAGER OF SCHOOL: Bridgett Lomas ANESTHESIA TYPE: Local By Surgeon and General LMA/ETT Refer to Anesthesia Record ESTIMATED BLOOD LOSS: 5 PATHOLOGY: none sent COMPLICATIONS: None Patient was transported to: PACU Patient's condition: stable Indications: Patient is a 69-year-old male who presented to the general surgery clinic with right inguinal pain. On presentation and exam he did have evidence of a right inguinal hernia. Given his symptoms he elected to proceed with repair of this hernia. And an open inguinal hernia repair was discussed with him at length and consent was obtained prior to the procedure. Findings: Evidence of indirect right inguinal hernia. The hernia sac was identified and a high ligation performed. Mesh was then placed to reinforce the floor. Hemost asis was achieved. The aponeurosis of the external bleak was then closed and the incision closed in layers. Procedure Description: After induction of anesthesia and a surgical safety checklist performed, the right groin was prepped and draped in the usual sterile fashion.??The skin and subcutaneous tissue overlying the right inguinal ligament was then infiltrated with local anesthesia.??An incision was then made following the skin lines and was taken down through the skin and subcutaneous tissue.??Aleisha fascia was incised.??The external oblique aponeurosis was seen.??It was then opened up in the direction of its fibers through the external ring.?We then dissected the floor of the inguinal canal and we could see an indirect hernia.??The hernia sac was then seen.??It was dissected back to the internal ring.?The hernia sac was then highly ligated with a 2-0 Vicryl stitch.??The hernia then reduced back to the internal ring.?The inguinal floor was then loosely reapproximated with running 2-0 Vicryl suture. An onlay patch was then fashioned with Bard mesh.?It was laid over the floor of the inguinal canal.?The mesh was secured to the pubic tubercle with a 2-0 Prolene.??It was sutured to the conjoined tendon with interrupted 2-0 Prolene suture.??It was sutured to the shelving edge of the inguinal ligament with 2-0 Prolene sutures.?Repair appeared adequate. The inguinal canal was reconstructed by reapproximating the external oblique aponeurosis with a running 2-0 Vicryl suture.??The fascia and subcutaneous tissue was infiltrated with local anesthesia.??Aleisha fascia was reapproximated with 3 interrupted 3-0 Vicryl sutures.??The deep dermis was reapproximated with 3-0 Vicryl suture and the skin was closed with subcuticular stitch of 4-0 Monocryl.??Dermabond and steri-strips were used to cover the incision. The patient tolerated the procedure well and all counts were correct. The patient was transferred to PACU in stable condition. Date of Procedure: 07/04/25
[2025-07-04] MEDS: oxyCODONE 5 MG TAB PO (15:57)
== END 2025-07-04 16:33 | disposition home or self-care (01) ==
PROVIDERS: PCP Nurse Practitioner Family; Visit Provider Student in an Organized Health Care Education/Training Program
PROC: (CPT 49505; principal; 2025-07-04 11:30)
DX: K40.90 Unilateral inguinal hernia, without obstruction or gangrene, not specified as recurrent (principal)
CPT/HCPCS: 49505; 45380; 64486; C1781; J0166; J0665; J0666; J0690; J1100; J1885; J2003; J2250; J2405; J2704

== ENCOUNTER → 2025-07-15 11:08 | Outpatient (BNVA) | payer MEDICARE, MEDICAID, SELFPAY | PROVIDERS: PCP Nurse Practitioner Family; Referring Provider Nurse Practitioner Family; Visit Provider Student in an Organized Health Care Education/Training Program | DX: Z09 Encounter for follow-up examination after completed treatment for conditions other than malignant neoplasm (principal); K40.90 Unilateral inguinal hernia, without obstruction or gangrene, not specified as recurrent | CPT/HCPCS: 99024 ==

== ENCOUNTER 2025-08-06 11:21 | Outpatient (CLI) | payer MEDICARE, MEDICAID, SELFPAY ==
[2025-08-06 12:05] LABS: Hemoglobin A1C 5.4 % (<5.7)
[2025-08-06 13:29] LABS: Cholesterol 237 mg/dL (<200); HDL Cholesterol 43 mg/dL (>40)
[2025-08-06 22:57] LABS: PSA, Screening 2.6 ng/mL (<=4.5)
== END 2025-08-06 11:22 | disposition home or self-care (01) ==
LOC: LBO 11:24
PROVIDERS: PCP Nurse Practitioner Family; Visit Provider Nurse Practitioner Family
DX: Z13.1 Encounter for screening for diabetes mellitus (principal); Z12.5 Encounter for screening for malignant neoplasm of prostate; Z13.6 Encounter for screening for cardiovascular disorders
CPT/HCPCS: 36415; 80061; 84153; 83036